=== PATIENT | male | born 2000 | race Caucasian/White ===

== ENCOUNTER 2024-06-04 12:03 | Emergency (ER) | payer OTHER ==
[~2024-06-04] VITALS: Ht 188 cm; Wt 123.5 kg
[2024-06-04] MEDS: IBUPROFEN 600MG TAB PO ONE (15:03)
[2024-06-04] MEDS: IBUPROFEN 100MG 5ML SUSP UDC DYE FREE PO ONE (15:20)
[2024-06-04 16:00] VITALS: BP 131/85; TEMP 98.1; O2SAT 99
== END 2024-06-04 16:00 | disposition home or self-care (01) ==
LOC: M ED 12:03
DX: S90.211A Contusion of right great toe with damage to nail, initial encounter (principal); X58.XXXA Exposure to other specified factors, initial encounter; Y92.9 Unspecified place or not applicable; Y93.9 Activity, unspecified; Y99.9 Unspecified external cause status